=== PATIENT | male | born 1980 | race Caucasian/White ===

== ENCOUNTER → 2018-08-15 | Day surgery (SDC) | payer MEDICAID ==
[2018-08-11 14:16] VITALS: BMI 31.1
[~2018-08-15] MED LIST: LACTATED RINGERS 1,000 ML IV SCH; LIDOCAINE 1% 20 ML VIAL (10MG/ML) FOR IV START INTRADERMA PRN; LIDOCAINE 1% INJ 10MG/ML (20 ML MDV) ONE; PROPOFOL 10 MG/ML 20 ML VIAL IV ONE
[2018-08-15 13:42] VITALS: TEMP 97.7
--- NOTE | 2018-08-15 14:41 | P.PCN ---
Date of Procedure: 08/15/18 Procedure(s) Performed: PREOPERATIVE DIAGNOSIS: Rectal bleeding POSTOPERATIVE DIAGNOSIS: Mild rectosigmoid colitis, mild diverticulosis PROCEDURE: Colonoscopy with biopsy ANESTHESIA: [facility] [place] SURGEON: Dom Salmeron M.D. SPECIMENS: Rectosigmoid ENDOSCOPIC PROCEDURE: The patient was placed on the endoscopy table in the left decubitus position. The Olympus colonoscope was inserted into the anus and passed under direct visualization to the base of the cecum. The appendiceal orifice was visualized. From that point the scope was slowly withdrawn inspecting all surfaces carefully. There were no neoplastic inflammatory or polypoid lesions throughout the cecum, ascending, transverse, or descending colon. In the region of the sigmoid and proximal rectum there was very mild inflammatory change of the mucosa. No ulcerations were seen. Random biopsies were taken of this area. The distal rectum appeared normal. There was mild left-sided diverticulosis present as well. The patient had mild pruritus a knife present. Otherwise digital rectal examination was normal. The patient was taken to the recovery room in stable condition per anesthesia guidelines. RECOMMENDATIONS: Await biopsy results.
[2018-08-15 15:10] VITALS: BP 119/83; PULSE 64; RESP 16
--- NOTE | 2018-08-17 16:29 | CDI ---
Outpatient Documentation Clarification Form Date: 08/17/18 CDS/Eye Specialist Name: Marlen Vincent Phone: If any questions, call Anne Pickett Laboratory Equipment Cleaner at [phone] Patient Name: Cy Fuller Admit Date: 08/15/18 Discharge Date: 08/15/18 ATTENTION: The [facility] Coding Staff appreciate your assistance in clarifying documentation. Please respond to the clarification below the line at the bottom and electronically sign. The [facility] Coding staff will review the response and follow-up if needed. Please note: Queries are made part of the Legal Health Record. If you have any questions, please contact the Laboratory Equipment Cleaner. Dear Dr. Salmeron, What is the source of the GI bleed? Multiple coding resources, that we are required to follow, state that the physician should identify a source and the seismograph helper may not assume. Possible answers include colitis or diverticulosis. ICD-9-CM [facility], 2006, Page 13: Question: In the 2004 issue of [facility], it was advised that "the combination codes describing hemorrhage should not be assigned unless the physician identifies a causal relationship." This information superseded previous advice provided in 1991. If, however, a patient presents with GI bleeding where only one possible source is found, can the seismograph helper assume a causal relationship between the GI bleeding and the single finding (ulcer, gastritis, diverticulitis, etc.) or must the physician explicitly state that the GI bleeding is due to the single finding? Answer: The seismograph helper should not assume a causal relationship between gastrointestinal bleeding and a single finding such as a gastric ulcer, gastritis, diverticulitis , etc. The physician must identify the source of the bleeding and link the clinical findings from the colonoscopy or upper endoscopy, since these findings may be unrelated to the bleeding. ICD-9-CM, 2004, Page: 17-18: Question: A patient presents with GI bleeding and undergoes both an EGD with biopsy and colonoscopy. Results reveal multiple findings including gastritis, duodenitis, esophagitis, diverticulosis (of colon), and colon polyp. The physician does not link the GI bleeding with these conditions nor does the physician state that the GI bleeding is not due to these conditions. What is the correct code assignment for these conditions? Answer: Query the physician to determine whether the GI bleeding was caused by any of the endoscopic findings (e.g., gastritis, duodentitis, esophagitis, diverticulosis, and/or polyp). Assign code 578.9, Hemorrhage of gastrointestinal tract, unspecified, as the principal diagnosis, if the physician does not establish a causal relationship between the gastrointestinal bleeding and the multiple findings. Codes 535.50, Unspecified gastritis and gastroduodenitis, without hemorrhage, 535.60, Duodenitis, without hemorrhage, 530.10, Esophagitis, unspecified, 562.10, Diverticulosis of colon (without mention of hemorrhage), and 211.3, Benign neoplasm of other parts of digestive system, Colon, should be assigned as additional diagnoses. The combination codes describing hemorrhage should not be assigned unless the physician identifies a causal relationship. If the documentation provides more specific information and the bleeding is linked to a specific condition, assign the appropriate combination code with bleeding. Assign code 45.16, Esophagogastroduodenoscopy [EGD] with closed biopsy, and code 45.23, Colonoscopy , for the procedures performed. This current information supersedes advice previously published in [facility], Second Quarter 1991, pages 8-9. Thank you for your kind consideration. Source of GI bleeding likely related to mild colitis or possibly hemorrhoids MTDD
== END ==
LOC: ORWHC2ENDO 12:49
PROVIDERS: ATTEND Surgery
DX: K62.5 Hemorrhage of anus and rectum (principal); K52.9 Noninfective gastroenteritis and colitis, unspecified; K57.30 Diverticulosis of large intestine without perforation or abscess without bleeding; K42.9 Umbilical hernia without obstruction or gangrene; K21.9 Gastro-esophageal reflux disease without esophagitis; Z83.71 Family history of colonic polyps; Z83.79 Family history of other diseases of the digestive system; F17.200 Nicotine dependence, unspecified, uncomplicated
CPT/HCPCS: 88305; 45380; J2001; J2704

== ENCOUNTER 2018-12-16 09:15 | Day surgery (SDC) | payer MEDICAID ==
[2018-12-14 11:11] VITALS: BMI 29.8
[~2018-12-16 09:15] MED LIST changes: +DEXAMETHASONE SOD PHOSPHATE 10 MG/ML 1 ML VIAL IV ONE; +HEPARIN SODIUM,PORCINE 5,000 UNIT/ML 1 ML VIAL SQ ONE; -LIDOCAINE 1% 20 ML VIAL (10MG/ML) FOR IV START INTRADERMA PRN; -LIDOCAINE 1% INJ 10MG/ML (20 ML MDV) ONE; +MIDAZOLAM (PF) 2 MG/2 ML VIAL IV PRN; +ONDANSETRON 4 MG/2 ML VIAL IVP ONE; -PROPOFOL 10 MG/ML 20 ML VIAL IV ONE; +SCOPOLAMINE 1.5MG/72HR PATCH TRANSDERM ONE; +ceFAZolin IN SWFI 2 GM/20 ML SYRINGE IVP ONE
--- NOTE | 2018-12-16 09:50 | P.GSHP ---
History of Present Illness H&P Date: 12/16/18 Chief Complaint: Umbilical hernia incarcerated 38-year-old male has complaints of bulging at the umbilicus. Previous seen in the office for the same reason. Describe some bloating and discomfort at that area. Slightly increasing in size. Nonreducible. No nausea or vomiting. Past Medical History Past Medical History: Asthma, Musculoskeletal Disorder Additional Past Medical History / Comment(s): UMBILICAL HERNIA, PREV. HX OF HTN , neck & back pain History of Any Multi-Drug Resistant Organisms: None Reported Past Surgical History: Orthopedic Surgery Additional Past Surgical History / Comment(s): RT ARM, LASIX EYE SX Past Anesthesia/Blood Transfusion Reactions: No Reported Reaction Smoking Status: Current some day smoker - Past Family History Father Family Medical History: Cancer Additional Family Medical History / Comment(s): COLON Medications and Allergies Home Medications Medication Instructions Recorded Confirmed Type Baclofen 5 mg PO BID PRN 12/14/18 12/16/18 History Ergocalciferol (Vitamin D2) 50,000 unit PO Q7D 12/14/18 12/16/18 History [Vitamin D2] Allergies Allergy/AdvReac Type Severity Reaction Status Date / Time No Known Allergies Allergy Verified 12/16/18 09:32 Surgical - Exam Vital Signs Temp Pulse Resp BP Pulse Ox 98.2 F 54 L 16 139/82 98 12/16/18 09:36 12/16/18 09:36 12/16/18 09:36 12/16/18 09:36 12/16/18 09:36 Physical exam: General: Well-developed, well-nourished HEENT: Normocephalic, sclerae nonicteric Abdomen: Nontender, nondistended, small incarcerated umbilical hernia mildly tender Extremities: No edema Neuro: Alert and oriented Assessment and Plan (1) Umbilical hernia Narrative/Plan: Will proceed with open umbilical herniorrhaphy with possible mesh at this time. Risks of bleeding, infection, recurrence, bladder and bowel injury, numbness , nerve injury were discussed with the patient. The patient understands and wishes to proceed. Current Visit: Yes Status: Acute Code(s): K42.9 - UMBILICAL HERNIA WITHOUT OBSTRUCTION OR GANGRENE SNOMED Code(s): 819736284
[2018-12-16] MEDS ORDERED: LIDOCAINE 1% 20 ML VIAL (10MG/ML) FOR IV START INTRADERMA ONE (10:01)
[2018-12-16] MEDS ORDERED: MIDAZOLAM 2 MG/2 ML VIAL ONE (11:28)
[2018-12-16] MEDS ORDERED: ROCURONIUM BROMIDE 10 MG/ML 10 ML VIAL IV ONE (11:28)
[2018-12-16] MEDS ORDERED: GLYCOPYRROLATE 0.2 MG/ML 2 ML VIAL ONE (11:28)
[2018-12-16] MEDS ORDERED: PROPOFOL 10 MG/ML 20 ML VIAL IV ONE (11:28)
[2018-12-16] MEDS ORDERED: LIDOCAINE 1% INJ 10MG/ML (20 ML MDV) ONE (11:28)
[2018-12-16] MEDS ORDERED: NEOSTIGMINE 1 MG/ML 10 ML VIAL ONE (11:28)
[2018-12-16] MEDS ORDERED: fentaNYL (PF) 50 MCG/ML 2 ML AMP ONE (11:28)
[2018-12-16] MEDS ORDERED: HYDROmorphone (PF) 1 MG/ML ONE (11:28)
[2018-12-16] MEDS ORDERED: BUPIVACAINE (PF) 0.25% 30 ML VIAL SQ ONE ×2 (11:54)
[2018-12-16] MEDS ORDERED: HYDROcodone/APAP 5-325MG 1 EACH TAB PO PRN (12:38)
[2018-12-16] MEDS ORDERED: NALOXONE 0.4 MG/ML 1 ML VIAL IV PRN (12:38)
--- NOTE | 2018-12-16 12:38 | P.OP ---
Date of Procedure: 12/16/18 Procedure(s) Performed: PREOPERATIVE DIAGNOSIS: Incarcerated umbilical hernia POSTOPERATIVE DIAGNOSIS: Same PROCEDURE: Umbilical herniorrhaphy with mesh SURGEON: Faviola EBL: 10 mL ANESTHESIA: General COMPLICATIONS: None OPERATIVE PROCEDURE: The patient was placed in the operating table in the supine position. A left periumbilical incision was made using the scalpel. The subcutaneous tissues were dissected bluntly. The hernia sac was identified. The umbilical attachments to the fascia were divided using electrocautery. The hernia sac was excised. The hernia sac was sent to pathology. The defect was 1-1.5 cm in diameter. A 4.3 ventral ex mesh was placed beneath the fascia and sutured in place using trans-fascial 0 Ethibond sutures. The defect was closed using interrupted vest over pants 0 Ethibond sutures. The folding edge of that closure was tacked down using additional 0 Ethibond sutures. The subcutaneous tissues were reapproximated using inverted 3 -0 Vicryl sutures. The umbilicus was tacked back down to the fascia using a 3- 0 Vicryl suture. The skin was closed using 4-0 Monocryl sutures. Skin glue and sterile dressings were then applied. DISPOSITION: Stable to recovery room
[2018-12-16 12:48] VITALS: TEMP 97
[2018-12-16] MEDS ORDERED: LACTATED RINGERS 1,000 ML IV ONE ×2 (12:48)
[2018-12-16] MEDS: HYDROmorphone 0.5 MG/0.5 ML SYRINGE IVP PRN ×2 (13:11→13:16)
[2018-12-16] MEDS ORDERED: HYDROcodone/APAP 5-325MG 1 EACH TAB PO ONE (14:50)
[2018-12-16] MEDS ORDERED: ONDANSETRON 4 MG/2 ML VIAL IVP ONE (15:16)
[2018-12-16 16:01] VITALS: BP 149/93; PULSE 63; RESP 16
== END 2018-12-16 16:14 | disposition home or self-care (01) ==
LOC: OR 09:15
PROVIDERS: ATTEND Surgery
DX: K42.0 Umbilical hernia with obstruction, without gangrene (principal); J45.909 Unspecified asthma, uncomplicated; Z79.1 Long term (current) use of non-steroidal anti-inflammatories (NSAID); F17.210 Nicotine dependence, cigarettes, uncomplicated; M62.838 Other muscle spasm
CPT/HCPCS: 88302; 49587; C1781; J2250; J1644; J1100; J2710; J2405; J2001; J3010; J1170 ×2; J2704; J0690

== ENCOUNTER → 2019-03-06 | Outpatient (CLI) | payer MEDICAID, OTHER ==
--- NOTE | 2019-03-06 08:55 | CT ---
EXAMINATION TYPE: CT cervical spine wo con DATE OF EXAM: 03/06/2019 COMPARISON: NONE HISTORY: Lt neck pain and stiffness, neck won't bend to the Lt CT DLP: 686.4 mGycm. Automated Exposure Control for Dose Reduction was Utilized. TECHNIQUE: CT scan of the cervical spine is obtained without contrast, axial images are obtained, sa gittal and coronal reformatted images are also reviewed. FINDINGS: Cervical spine is visualized in its entirety from C1 through upper thoracic levels, demonst rates dextroconvex scoliotic curvature positioning centered in the mid cervical spine without evidenc e of acute fracture or dislocation. There is slight grade 1 anterolisthesis of C4 on C5 on sagittal i mages. Prevertebral soft tissue appears within normal limits. The C1-C2 articulation is within jose e l limits on the coronal images. Vertebral body heights and disc space heights are maintained. No larg e posterior disc herniations are present on sagittal images. Review of axial images shows the C2-C3 level to appear within normal limits. Axial images at C3-C4 level mild left-sided neural marginal spurring causing mild left-sided neural f oraminal narrowing. Axial images at the C4-C5 level show more prominent left-sided uncovertebral facet spurring causing m oderate left-sided neural foraminal narrowing. Axial images at C5-C6 level show tiny central disc protrusion mildly facing anterior thecal sac, bila teral neural foramina are patent. Axial images at C6-C7 level are felt within normal limits. Axial images at C7-T1 level are felt within normal limits. Thyroid gland is felt within normal limits. Lung apices are clear. 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
== END | disposition home or self-care (01) ==
LOC: RADCTMAIN 08:12
PROVIDERS: ATTEND Internal Medicine
DX: M48.02 Spinal stenosis, cervical region (principal); M50.222 Other cervical disc displacement at C5-C6 level; M43.12 Spondylolisthesis, cervical region; M47.812 Spondylosis without myelopathy or radiculopathy, cervical region; M41.82 Other forms of scoliosis, cervical region
CPT/HCPCS: 72125

== ENCOUNTER → 2019-03-24 | Outpatient (CLI) | payer MEDICAID, OTHER ==
[2019-03-24 07:03] LABS: Basophils # (A) 0.1 k/uL (0-0.2); Basophils % (A) 0 %; Eosinophils # (A) 0.5 k/uL (0-0.7); Eosinophils % (A) 3 %; HCT 47.7 % (39.0-53.0); HGB 15.8 gm/dL (13.0-17.5); Lymphocytes # (A) 3.4 k/uL (1.0-4.8); Lymphocytes % (A) 20 %; MCH 29.2 pg (25.0-35.0); MCHC 33.1 g/dL (31.0-37.0); MCV 88.4 fL (80.0-100.0); Mean Platelet Volume 6.7; Monocytes # (A) 0.8 k/uL (0-1.0); Monocytes % (A) 5 %; Neutrophils # (A) 11.8 k/uL (1.3-7.7); Neutrophils % (A) 70 %; Platelet Count 327 k/uL (150-450); RDW 13.2 % (11.5-15.5); WBC 16.9 k/uL (3.8-10.6)
== END | disposition home or self-care (01) ==
LOC: LABWHC1 06:51
PROVIDERS: ATTEND Internal Medicine
DX: D72.829 Elevated white blood cell count, unspecified (principal); R53.83 Other fatigue
CPT/HCPCS: 36415; 84403; 85025

== ENCOUNTER → 2019-03-28 | Outpatient (CLI) | payer MEDICAID, OTHER | END | disposition home or self-care (01) | LOC: LABWHC1 07:56 | PROVIDERS: ATTEND Internal Medicine | DX: E55.9 Vitamin D deficiency, unspecified (principal); R53.83 Other fatigue | CPT/HCPCS: 36415; 82306; 84402; 84403 ==

== ENCOUNTER → 2019-04-20 | Outpatient (CLI) | payer MEDICAID, OTHER | END | disposition home or self-care (01) | LOC: LABWHC1 06:42 | PROVIDERS: ATTEND Internal Medicine | DX: L29.0 Pruritus ani (principal) | CPT/HCPCS: 87045; 87046; 87328; 87329; 87491; 87591 ==

== ENCOUNTER → 2019-04-20 | Outpatient (CLI) | payer MEDICAID, OTHER ==
--- NOTE | 2019-04-20 08:04 | XR ---
EXAMINATION TYPE: XR chest 2V DATE OF EXAM: 04/20/2019 COMPARISON: None HISTORY: 38-year-old male with leukocytosis, cough and congestion TECHNIQUE: Frontal and lateral views FINDINGS: The cardiomediastinal silhouette, aorta, and pulmonary vasculature are within normal limits. Lungs an d pleural spaces are clear. IMPRESSION: No acute cardiopulmonary process.
== END | disposition home or self-care (01) ==
LOC: RADXRMAIN 06:47
PROVIDERS: ATTEND Internal Medicine
DX: D72.829 Elevated white blood cell count, unspecified (principal)
CPT/HCPCS: 71046

== ENCOUNTER → 2019-04-22 | Outpatient (CLI) | payer MEDICAID, OTHER | END | disposition home or self-care (01) | LOC: LABWHC1 08:45 | PROVIDERS: ATTEND Internal Medicine | DX: L29.0 Pruritus ani (principal) | CPT/HCPCS: 87172 ==